=== PATIENT | male | born 1980 | race Caucasian/White ===

== ENCOUNTER 2025-02-18 11:06 | Emergency (ER) | payer SELFPAY ==
[~2025-02-18] VITALS: Ht 177.8 cm; Wt 91.0 kg
[2025-02-18 12:02] VITALS: O2SAT 99
[2025-02-18] MEDS: KETOROLAC 30MG/ML VIAL IM ONE (12:20)
[2025-02-18] MEDS: ACETAMINOPHEN 325MG TABLET PO ONE (12:20)
[2025-02-18] MEDS ORDERED: METH-653 MT (13:36)
[2025-02-18] MEDS ORDERED: IBUP-2029 MT (13:36)
[2025-02-18 14:12] VITALS: BP 101/58; PULSE 60; RESP 16; TEMP 36.8; O2SAT 99
== END 2025-02-18 14:15 | disposition home or self-care (01) ==
LOC: ER 11:06
DX: S43.401A Unspecified sprain of right shoulder joint, initial encounter (principal); S50.01XA Contusion of right elbow, initial encounter; M25.551 Pain in right hip; X58.XXXA Exposure to other specified factors, initial encounter; Y93.89 Activity, other specified; Y92.89 Other specified places as the place of occurrence of the external cause; Y99.8 Other external cause status
CPT/HCPCS: 99284; 73502; 73030; 73080; 96372; J1885